=== PATIENT | male | born 1965 | race Caucasian/White ===

== ENCOUNTER 2019-04-01 23:19 | Inpatient (IN) | payer BC, OTHER ==
[~2019-04-01] VITALS: Ht 167.6 cm; Wt 120.7 kg
[~2019-04-01 23:19] MED LIST: ASPI-535 PO; OMEP40CA3 PO
[2019-04-01] MEDS ORDERED: SODIUM CHLORIDE 0.9% 1L BAG IV* STA (23:37)
[2019-04-01] MEDS ORDERED: VANCOMYCIN 1 GM (PMX) 250 ML IVPB STA (23:37)
[2019-04-01] MEDS ORDERED: PIPER-TAZO 3.375 GM IV (PMX) 100 ML IVPB STA (23:37)
--- NOTE | 2019-04-01 23:38 | ERD ---
ER Documentation Chief Complaint Chief Complaint R LEG PAIN, REDNESS, HOT TO TOUCH X'S 1 DAY HPI This is a 53-year-old male with a history of a chronic right lower extremity wound who presents with fever, as well as redness, and pain to his right lower extremity. Patient has had this wound for many years, however today family note d there is red and painful. He has no cough, no chest pain, no urinary symptoms or abdominal pain. He was previously receiving wound care for this, he has no known history of diabetes. ROS All systems reviewed and are negative except as per history of present illness. Medications Home Meds Active Scripts Aspirin Ec (Aspir 81) 81 Mg Tablet., 81 MG PO DAILY, #30 TAB Prov:JOSE J PANIAGUA MD 06/07/16 Omeprazole* (Prilosec*) 40 Mg Capsule., 40 MG PO DAILY, #30 CAP Prov:JOSE J PANIAGUA MD 06/07/16 Allergies Allergies: Coded Allergies: No Known Allergy (Unverified , 04/01/19) PMhx/Soc History of Surgery: No Anesthesia Reaction: No Hx Neurological Disorder: No Hx Respiratory Disorders: No Hx Cardiac Disorders: No Hx Psychiatric Problems: No Hx Miscellaneous Medical Probl: No (PT DENIES AND STATES HE TAKES NO AT HOME MEDS) Hx Alcohol Use: Yes (OOC) Hx Substance Use: No Hx Tobacco Use: Yes Physical Exam Vitals Vital Signs Date Temp Pulse Resp B/P (MAP) Pulse Ox O2 O2 Flow FiO2 Time Delivery Rate 04/02/19 100.4 95 18 137/75 95 Room Air 00:16 (95) 04/01/19 101.4 103 20 157/72 95 23:24 (100) Physical Exam Const: Well-appearing, nontoxic well-developed well-nourished Head: Atraumatic Eyes: Normal Conjunctiva ENT: Normal External Ears, Nose and Mouth. Neck: Full range of motion. No meningismus. Resp: Clear to auscultation bilaterally Cardio: Regular rate and rhythm, no murmurs Abd: Soft, non tender, non distended. Normal bowel sounds Skin: No petechiae or rashes Back: No midline or flank tenderness Ext: No cyanosis, or edema. There is redness, warmth and tenderness over the right lower extremity at the anterior lemos, there is no purulent drainage, no crepitus, no fluctuant masses, pulses are intact distally, sensation intact light touch. Neur: Awake and alert Psych: Normal Mood and Affect Result Diagram: 04/01/19 2345 04/01/19 2345 Results 24 hrs Laboratory Tests Test 04/01/19 23:45 04/01/19 23:47 White Blood Count 18.1 10^3/ul Red Blood Count 4.93 10^6/ul Hemoglobin 15.4 g/dl Hematocrit 47.0 % Mean Corpuscular Volume 95.3 fl Mean Corpuscular Hemoglobin 31.2 pg Mean Corpuscular Hemoglobin Concent 32.8 g/dl Red Cell Distribution Width 12.5 % Platelet Count 205 10^3/UL Mean Platelet Volume 9.1 fl Immature Granulocytes % 0.700 % Neutrophils % 84.4 % Lymphocytes % 7.3 % Monocytes % 6.5 % Eosinophils % 0.8 % Basophils % 0.3 % Nucleated Red Blood Cells % 0.0 /100WBC Immature Granulocytes # 0.130 10^3/ul Neutrophils # 15.3 10^3/ul Lymphocytes # 1.3 10^3/ul Monocytes # 1.2 10^3/ul Eosinophils # 0.1 10^3/ul Basophils # 0.1 10^3/ul Nucleated Red Blood Cells # 0.0 10^3/ul Prothrombin Time 12.0 Sec Prothrombin Time Ratio 0.9 INR International Normalized Ratio 0.88 Activated Partial Thromboplast Time 26.6 Sec Sodium Level 141 mmol/L Potassium Level 4.2 mmol/L Chloride Level 106 mmol/L Carbon Dioxide Level 28 mmol/L Anion Gap 7 Blood Urea Nitrogen 17 mg/dl Creatinine 0.92 mg/dl Est Glomerular Filtrat Rate mL/min > 60 mL/min Glucose Level 111 mg/dl Lactic Acid Level 1.3 mmol/L Calcium Level 9.2 mg/dl Total Bilirubin 0.3 mg/dl Direct Bilirubin 0.00 mg/dl Indirect Bilirubin 0.3 mg/dl Aspartate Amino Transf (AST/SGOT) 25 IU/L Alanine Aminotransferase (ALT/SGPT) 30 IU/L Alkaline Phosphatase 47 IU/L Troponin I Pending Total Protein 7.8 g/dl Albumin 4.4 g/dl Globulin 3.40 g/dl Albumin/Globulin Ratio 1.29 POC Venous Lactate 1.1 mmol/L Current Medications Medications Dose Sig/Tika Start Time Status Last (Trade) Ordered Route PRN Stop Time Admin Dose Reason Admin Sodium 3,590 ml BOLUS OVER 2 04/01/19 DC 04/02/19 Chloride HOURS STAT 23:37 00:06 (NS) IV* 04/01/19 23:39 Vancomycin 250 ml @ ONCE STAT 04/01/19 04/02/19 HCl 125 mls/hr IVPB 23:37 00:44 04/02/19 01:36 Piperacillin 100 ml @ ONCE STAT 04/01/19 DC 04/02/19 Sod/ 200 mls/hr IVPB 23:37 00:06 Tazobactam 04/02/19 00:06 Sod Procedures/MDM 53-year-old male presents with redness and fever in the setting of a history of chronic right lower extremity wound. Patient met septic criteria, and code sepsis was called, he was treated with vancomycin and Zosyn, he has no cardiac history, he is given 30 cc/kg of fluids, his lactate was within normal limits, he had no evidence of severe sepsis or septic shock. Sepsis Documentation: Patient's infectious symptoms have not stabilized and the patient is at risk of rapid decompensation. The patient will be admitted for careful hydration, antibiotic therapy, and infectious source control. Accepting Care Team: Current data and ongoing care discussed. Time: Time of admission Primary Provider: Michelle Consulting: pending Outstanding Data: none SEVERE SEPSIS CRITERIA: Infectious source: Cellulitis EKG: Rate/Rhythm: Normal Sinus Rhythm QRS, ST, T-waves: No changes consistent w/ acute ischemia Impression: No evidence of ischemia or arrhythmia 3 HOUR BUNDLE Blood cultures x 2 before broad-spectrum antibiotics: [Yes] 30 ml/kg NS bolus [Completed] Initial lactate 1 Repeat lactate not indicated SEPTIC SHOCK ASSESSMENT: CRITICAL CARE Critical care time [35] minutes Emergent fluid management while maintaining close respiratory support. Provision of immediate and broad-spectrum antibiotic therapy. Simultaneous assessment for possible sources in order to direct targeted therapy. Consideration for invasive and chemical support to prevent cardiopulmonary collapse. Critical care time is independent of procedures performed. Departure Diagnosis: Primary Impression: Sepsis Sepsis type: sepsis due to unspecified organism Qualified Codes: A41.9 - Sepsis, unspecified organism Additional Impression: Cellulitis Site of cellulitis: unspecified site Qualified Codes: L03.90 - Cellulitis, unspecified Condition: Stable HODAN STEEN MD April 01, 2019 23:38
[2019-04-02 01:50] VITALS: BP 145/68; PULSE 97; RESP 18
[2019-04-02 02:20] VITALS: Ht 167.6 cm; Wt 120.7 kg
--- NOTE | 2019-04-02 05:43 | HP ---
Date/Time of Note Date/Time of Note DATE: 04/02/19 TIME: 05:40 Assessment/Plan VTE Prophylaxis Risk score (from Ns)>0 risk: 4 SCD applied (from Ns): Yes Pharmacological prophylaxis: heparin Lines/Catheters IV Catheter Type (from Nrs): Saline Lock Assessment/Plan Assessment/Plan 53-year-old male with a history of right lower extremity infection being admitted for sepsis secondary to right lower extremity cellulitis PLAN -IV antibiotic -IV fluid -Follow-up culture results -Pain management -DVT prophylaxis -Continue home aspirin and PPI Result Diagram: 04/01/19 2345 04/01/19 2345 Results 24hrs Laboratory Tests Test 04/01/19 23:45 04/01/19 23:47 04/02/19 01:32 White Blood Count 18.1 #H Red Blood Count 4.93 Hemoglobin 15.4 Hematocrit 47.0 Mean Corpuscular Volume 95.3 Mean Corpuscular Hemoglobin 31.2 Mean Corpuscular Hemoglobin Concent 32.8 Red Cell Distribution Width 12.5 Platelet Count 205 Mean Platelet Volume 9.1 # Immature Granulocytes % 0.700 H Neutrophils % 84.4 H Lymphocytes % 7.3 L Monocytes % 6.5 Eosinophils % 0.8 Basophils % 0.3 Nucleated Red Blood Cells % 0.0 Immature Granulocytes # 0.130 H Neutrophils # 15.3 H Lymphocytes # 1.3 Monocytes # 1.2 H Eosinophils # 0.1 Basophils # 0.1 Nucleated Red Blood Cells # 0.0 Prothrombin Time 12.0 Prothrombin Time Ratio 0.9 INR International Normalized Ratio 0.88 Activated Partial Thromboplast Time 26.6 Sodium Level 141 Potassium Level 4.2 Chloride Level 106 Carbon Dioxide Level 28 Anion Gap 7 Blood Urea Nitrogen 17 Creatinine 0.92 Est Glomerular Filtrat Rate mL/min > 60 Glucose Level 111 Lactic Acid Level 1.3 Calcium Level 9.2 Total Bilirubin 0.3 Direct Bilirubin 0.00 Indirect Bilirubin 0.3 Aspartate Amino Transf (AST/SGOT) 25 Alanine Aminotransferase (ALT/SGPT) 30 Alkaline Phosphatase 47 Troponin I < 0.012 Total Protein 7.8 Albumin 4.4 Globulin 3.40 H Albumin/Globulin Ratio 1.29 POC Venous Lactate 1.1 Urine Color YELLOW Urine Clarity CLEAR Urine pH 7.0 Urine Specific Mathews 1.013 Urine Ketones NEGATIVE Urine Nitrite NEGATIVE Urine Bilirubin NEGATIVE Urine Urobilinogen NEGATIVE Urine Leukocyte Esterase NEGATIVE Urine Hemoglobin NEGATIVE Urine Glucose NEGATIVE Urine Total Protein NEGATIVE HPI/ROS Admit Date/Time Admit Date/Time April 02, 2019 at 00:49 Hx of Present Illness This is a 53-year-old male with history of right lower extremity infection who presented to ER complaining of fever, right lower extremity erythema and tenderness. When he presented to the ER, he was febrile with a temperature of 101.4 and tachycardic. Labs shows white count of 18,000. PMH/Family/Social Past Medical History Past Surgical Hx: other (see hpi) Family History Significant Family History: no pertinent family hx Social History Alcohol Use: none Smoking Status: Never smoker Drug Use: none Exam Exam Constitutional: other (No acute distress) Head: normocephalic, atraumatic Eyes: EOMI, PERRL Respiratory: other (no wheezing or Rhonchi) Cardiovascular: normal pulse Gastrointestinal: soft, non-tender Extremities: normal pulses Coded Allergies: No Known Allergy (Unverified , 04/01/19) Social History Smoking Status: Current some day smoker Exam/Review of Systems Vital Signs Vitals Vital Signs Date Temp Pulse Resp B/P (MAP) Pulse Ox O2 O2 Flow FiO2 Time Delivery Rate 04/02/19 99.2 97 18 145/68 95 01:50 (93) 04/02/19 Room Air 01:28 Intake and Output 04/01/19 04/01/19 04/02/19 1515:00 23:00 07:00 IntakeIntake Total 2250 ml BalanceBalance 2250 ml CARMELO NOEL MD April 02, 2019 05:43
[2019-04-02] MEDS ORDERED: HYDROCODONE/APAP (5/325) TAB PO PRN ×2 (06:00)
[2019-04-02] MEDS ORDERED: ACETAMINOPHEN 325 MG TAB PO PRN (06:00)
[2019-04-02] MEDS ORDERED: NACL 0.9% 3 ML SYG IV SCH (06:00)
[2019-04-02] MEDS ORDERED: VANCOMYCIN IV PER PHARMACY XX SCH (06:00)
[2019-04-02] MEDS ORDERED: ONDANSETRON 4 MG INJ IV PRN (06:00)
[2019-04-02] MEDS: PANTOPRAZOLE (EC) 40 MG TAB PO SCH (06:30)
[2019-04-02] MEDS: SOD CHLORIDE 0.9% 1,000 ML IV SCH ×3 (06:50→17:17)
[2019-04-02] MEDS ORDERED: VANCOMYCIN 1 GM 250 ML IVPB ONE (07:00)
[2019-04-02 07:53] VITALS: BP 122/64; PULSE 89; RESP 17
[2019-04-02] MEDS: CEFEPIME 1GM/50 ML (PMX) 50 ML IVPB SCH ×2 (08:49→21:07)
[2019-04-02] MEDS: ASPIRIN (EC) 81 MG TAB PO SCH (08:55)
[2019-04-02] MEDS: ENOXAPARIN 40 MG/0.4 ML SYG SC SCH (08:55)
[2019-04-02] MEDS ORDERED: NON-FORMULARY/PATIENT OWN MED (Omeprazole* (Prilosec*) 40 MG) PO SCH (09:00)
--- NOTE | 2019-04-02 10:09 | CONS ---
DATE OF ADMISSION: 04/02/2019 DATE OF CONSULTATION: 04/02/2019 TYPE OF CONSULTATION: Infectious disease. REASON FOR CONSULTATION: Antibiotic management. HISTORY OF PRESENT ILLNESS: Owen Wesley is a 53-year-old [place] male who comes in w ith right leg pain, redness of 1 day's duration. The patient has a history of chronic right lower ex tremity wound. He presents with fever, erythema and pain to the right lower extremity. He has no co ugh, no chest pain or urinary tract infection. He was previously receiving wound care for his right lower extremity wound. There is no history of diabetes. PAST SURGICAL HISTORY: None. FAMILY HISTORY: Noncontributory. SOCIAL HISTORY: He drinks socially. He smokes tobacco. He does not abuse drugs. ALLERGIES: None to penicillin, sulfa or foods. MEDICATIONS: Per chart. REVIEW OF SYSTEMS: As per HPI. PHYSICAL EXAMINATION: GENERAL: He is a well-developed, well-nourished male. VITAL SIGNS: T-max 101.4. SKIN: Without generalized rash. HEENT: Within normal limits. NECK: Supple. LYMPH NODES: None palpable. CHEST: Decreased breath sounds at the bases. HEART: Without murmur or gallop. ABDOMEN: Soft, nontender, without organosplenomegaly or masses. EXTREMITIES: He has warmth, redness, tenderness over the right lower extremity in the anterior tibia l area without drainage and without fluctuance. RECTAL AND GENITAL: Deferred. NEUROLOGIC: No focal neurological abnormalities. LABORATORY DATA: White count of 18.1 with 84% neutrophils, H and H of 15.4 and 47, platelet count 20 5,000. BUN and creatinine 17/0.92. IMPRESSION AND PLAN: The patient was started on vancomycin and Zosyn for cellulitis of the right low er extremity. He had no evidence of severe sepsis or septic shock. We will continue him on this reg imen. I will dictate my findings to the hospitalists. Dictated By: EV MALIK MD, JD/KATHY Conf#: [id number] DID#: [id number] CC: CARMELO NOEL MD;*EndCC*
--- NOTE | 2019-04-02 12:03 | PN ---
Date/Time of Note Date/Time of Note DATE: 04/02/19 TIME: 12:03 Objective Vitals Vital Signs Date Temp Pulse Resp B/P (MAP) Pulse Ox O2 O2 Flow FiO2 Time Delivery Rate 04/02/19 98.4 89 17 122/64 94 Room Air 07:53 (83) Intake and Output 04/01/19 04/01/19 04/02/19 1515:00 23:00 07:00 IntakeIntake Total 2250 ml BalanceBalance 2250 ml Results Result Diagram: 04/02/199 04/02/199 Medications Medications Current Medications Sodium Chloride 1,000 ml @ 100 mls/hr Q10H IV Last administered on 04/02/19at 06:50; Admin Dose 100 MLS/HR; Start 04/02/19 at 05:36 IV Flush (NS 3 ml) 3 ml PER PROTOCOL IV ; Start 04/02/19 at 06:00 Ondansetron HCl (Zofran Inj) 4 mg Q6H PRN IV NAUSEA/VOMITING; Start 04/02/19 at 06:00 Acetaminophen (Tylenol Tab) 650 mg Q6H PRN PO .PAIN 1-3 OR TEMP Last administered on 04/02/19at 06:55; Admin Dose 650 MG; Start 04/02/19 at 06:00 Acetaminophen/ Hydrocodone Bitart ([place] (5/325)) 1 tab Q6H PRN PO .MOD PAIN 4- 6; Start 04/02/19 at 06:00 Acetaminophen/ Hydrocodone Bitart ([place] (5/325)) 2 tab Q6H PRN PO .SEVERE PAIN 7-10; Start 04/02/19 at 06:00 Enoxaparin Sodium (Lovenox) 40 mg DAILY SC Last administered on 04/02/19at 08:55; Admin Dose 40 MG; Start 04/02/19 at 09:00 Aspirin (Halfprin) 81 mg DAILY PO Last administered on 04/02/19at 08:55; Admin Dose 81 MG; Start 04/02/19 at 09:00 Cefepime HCl 50 ml @ 100 mls/hr Q12 IVPB Last administered on 04/02/19at 08:49; Admin Dose 100 MLS/HR; Start 04/02/19 at 09:00 Vancomycin HCl (Vanco Iv Per Pharmacy) VANCOMYCIN PER PHARMACY PER PROTOCOL XX ; Start 04/02/19 at 06:00 Pantoprazole (Protonix Tab) 40 mg DAILY@06 PO ; Start 04/02/19 at 06:30 VTE Prophylaxis Risk score (from Ns)>0 risk: 4 SCD applied (from [facility] [place]): No SCD contraindication: other Lines/Catheters IV Catheter Type: Brooke in Place: No Assessment/Plan Hospital Course This is a short progress note as H&P was done earlier today, patient does have right lower extremity cellulitis, continue IV antibiotics, IV fluid, infectious disease has been consulted. HODAN PRICE April 02, 2019 12:03
[2019-04-02 20:00] VITALS: BP 126/71; PULSE 72; RESP 18
[2019-04-02] MEDS: VANCOMYCIN HCL 1.25 GM in SOD CHLORIDE 0.9% 250 ML IVPB SCH (21:45)
[2019-04-03 02:00] VITALS: BP 126/69; PULSE 86; RESP 18
[2019-04-03] MEDS: PANTOPRAZOLE (EC) 40 MG TAB PO SCH (05:45)
[2019-04-03 08:10] VITALS: BP 124/76; PULSE 77; RESP 17
[2019-04-03] MEDS: CEFEPIME 1GM/50 ML (PMX) 50 ML IVPB SCH (08:30)
[2019-04-03] MEDS: VANCOMYCIN HCL 1.25 GM in SOD CHLORIDE 0.9% 250 ML IVPB SCH ×2 (08:30→20:17)
[2019-04-03] MEDS: ASPIRIN (EC) 81 MG TAB PO SCH (08:30)
[2019-04-03] MEDS: ENOXAPARIN 40 MG/0.4 ML SYG SC SCH (08:32)
[2019-04-03] MEDS: SOD CHLORIDE 0.9% 1,000 ML IV SCH (08:33)
[2019-04-03] MEDS: PIPER-TAZO 3.375 GM IV (PMX) 100 ML IVPB SCH ×2 (14:22→23:33)
[2019-04-03 14:44] VITALS: BP 114/60; PULSE 73; RESP 17
--- NOTE | 2019-04-03 17:37 | PN ---
Date/Time of Note Date/Time of Note DATE: 04/03/19 TIME: 17:31 Assessment/Plan VTE Prophylaxis Risk score (from Nsg)>0 risk: 4 SCD applied (from Nsg): Yes Pharmacological prophylaxis: LMWH Lines/Catheters IV Catheter Type (from Nrsg): Saline Lock Urinary Cath still in place: No Assessment/Plan Assessment/Plan 1. Acute right lower extremity cellulitis vs folliculitis - ID on board and appreciate recommendations. Continue on current antibiotic - advised patient to keep limb elevated to prevent swelling - WBC trending down 2. Disposition - Monitor for improvement in LE cellulitis and will transition to PO once improving and d/c home Result Diagram: 04/03/1938 04/03/19 0538 Results 24hrs Laboratory Tests Test 04/03/19 05:38 White Blood Count 10.9 #H Red Blood Count 4.46 L Hemoglobin 14.1 Hematocrit 42.2 Mean Corpuscular Volume 94.6 Mean Corpuscular Hemoglobin 31.6 Mean Corpuscular Hemoglobin Concent 33.4 Red Cell Distribution Width 13.0 Platelet Count 163 Mean Platelet Volume 9.2 Immature Granulocytes % 0.600 H Neutrophils % 70.6 Lymphocytes % 17.1 Monocytes % 9.4 Eosinophils % 1.8 Basophils % 0.5 Nucleated Red Blood Cells % 0.0 Immature Granulocytes # 0.060 H Neutrophils # 7.7 H Lymphocytes # 1.9 Monocytes # 1.0 H Eosinophils # 0.2 Basophils # 0.1 Nucleated Red Blood Cells # 0.0 Sodium Level 141 Potassium Level 4.2 Chloride Level 109 Carbon Dioxide Level 26 Anion Gap 6 Blood Urea Nitrogen 11 Creatinine 0.90 Est Glomerular Filtrat Rate mL/min > 60 Glucose Level 111 Calcium Level 8.6 Phosphorus Level 4.0 Magnesium Level 2.0 Subjective 24 Hr Interval Summary Free Text/Dictation Patient states erythema and swelling of RLE is worsening but denies any fevers. Exam/Review of Systems Exam Vitals Vital Signs Date Temp Pulse Resp B/P (MAP) Pulse Ox O2 O2 Flow FiO2 Time Delivery Rate 04/03/19 98.8 73 17 114/60 95 Room Air 14:44 (78) Intake and Output 04/02/19 04/02/19 04/03/19 1515:00 23:00 07:00 IntakeIntake Total 50 ml 90 ml BalanceBalance 50 ml 90 ml Exam General: Patient is laying in bed and answers questions appropriately. no acute distress Mentation: Patient is alert and oriented 4, Neck: Supple, nontender, midline Respiratory: Clear to auscultation bilaterally. no wheezing Cardiovascular: regular rate and rhythm, no obvious murmurs Gastrointestinal: soft, nontender to palpation, nondistended. no rebound or guarding Ext: Moves all extremities spontaneously Skin: erythema and warm right anterior tibial area, no open wounds or discharge appreciated. mild tenderness to palpation Results Results 24hrs Laboratory Tests Test 04/03/19 05:38 White Blood Count 10.9 #H Red Blood Count 4.46 L Hemoglobin 14.1 Hematocrit 42.2 Mean Corpuscular Volume 94.6 Mean Corpuscular Hemoglobin 31.6 Mean Corpuscular Hemoglobin Concent 33.4 Red Cell Distribution Width 13.0 Platelet Count 163 Mean Platelet Volume 9.2 Immature Granulocytes % 0.600 H Neutrophils % 70.6 Lymphocytes % 17.1 Monocytes % 9.4 Eosinophils % 1.8 Basophils % 0.5 Nucleated Red Blood Cells % 0.0 Immature Granulocytes # 0.060 H Neutrophils # 7.7 H Lymphocytes # 1.9 Monocytes # 1.0 H Eosinophils # 0.2 Basophils # 0.1 Nucleated Red Blood Cells # 0.0 Sodium Level 141 Potassium Level 4.2 Chloride Level 109 Carbon Dioxide Level 26 Anion Gap 6 Blood Urea Nitrogen 11 Creatinine 0.90 Est Glomerular Filtrat Rate mL/min > 60 Glucose Level 111 Calcium Level 8.6 Phosphorus Level 4.0 Magnesium Level 2.0 Medications Medication Current Medications Sodium Chloride 1,000 ml @ 100 mls/hr Q10H IV Last administered on 04/03/19at 08:33; Admin Dose 100 MLS/HR; Start 04/02/19 at 05:36 IV Flush (NS 3 ml) 3 ml PER PROTOCOL IV ; Start 04/02/19 at 06:00 Ondansetron HCl (Zofran Inj) 4 mg Q6H PRN IV NAUSEA/VOMITING; Start 04/02/19 at 06:00 Acetaminophen (Tylenol Tab) 650 mg Q6H PRN PO .PAIN 1-3 OR TEMP Last administered on 04/02/19at 06:55; Admin Dose 650 MG; Start 04/02/19 at 06:00 Acetaminophen/ Hydrocodone Bitart ([place] (5/325)) 1 tab Q6H PRN PO .MOD PAIN 4- 6; Start 04/02/19 at 06:00 Acetaminophen/ Hydrocodone Bitart ([place] (5/325)) 2 tab Q6H PRN PO .SEVERE PAIN 7-10 Last administered on 04/03/19 12:33; Admin Dose 2 TAB; Start 04/02/19 at 06:00 Enoxaparin Sodium (Lovenox) 40 mg DAILY SC Last administered on 04/03/19 08:32; Admin Dose 40 MG; Start 04/02/19 at 09:00 Aspirin (Halfprin) 81 mg DAILY PO Last administered on 04/03/19 08:30; Admin Dose 81 MG; Start 04/02/19 at 09:00 Vancomycin HCl (Vanco Iv Per Pharmacy) VANCOMYCIN PER PHARMACY PER PROTOCOL XX ; Start 04/02/19 at 06:00 Pantoprazole (Protonix Tab) 40 mg DAILY@06 PO Last administered on 04/03/19at 05:45; Admin Dose 40 MG; Start 04/02/19 at 06:30 Vancomycin HCl 1.25 gm/Sodium Chloride 250 ml @ 83.333 mls/ hr Q12H IVPB Last administered on 04/03/19 08:30; Admin Dose 83.333 MLS/HR; Start 04/02/19 at 20:00 Miscellaneous Information (*Rx Drug Level Order Reminder*) VANCO TR LEVEL PRIOR... ONCE ONCE XX ; Start 04/03/19 at 19:00; Stop 04/03/19 at 19:01 Piperacillin Sod/ Tazobactam Sod 100 ml @ 200 mls/hr Q8 IVPB Last administered on 04/03/19 14:22; Admin Dose 200 MLS/HR; Start 04/03/19 at 14:00 KHOI ESPARZA MD April 03, 2019 17:37
[2019-04-03] MEDS ORDERED: FUROSEMIDE 40 MG INJ IV ONE (19:00)
[2019-04-03 20:47] VITALS: BP 128/67; PULSE 62; RESP 18
[2019-04-04 02:00] VITALS: BP 127/72; PULSE 67; RESP 19
[2019-04-04] MEDS: VANCOMYCIN 1 GM 250 ML IVPB SCH ×3 (03:48→21:12)
[2019-04-04] MEDS: PANTOPRAZOLE (EC) 40 MG TAB PO SCH (05:35)
[2019-04-04] MEDS: PIPER-TAZO 3.375 GM IV (PMX) 100 ML IVPB SCH ×2 (06:04→14:19)
[2019-04-04 07:35] VITALS: BP 116/56; PULSE 66; RESP 19
[2019-04-04] MEDS: ENOXAPARIN 40 MG/0.4 ML SYG SC SCH (09:07)
[2019-04-04] MEDS: ASPIRIN (EC) 81 MG TAB PO SCH (09:08)
--- NOTE | 2019-04-04 10:05 | PN ---
Date/Time of Note Date/Time of Note DATE: 04/04/19 TIME: 10:00 Assessment/Plan VTE Prophylaxis Risk score (from Ns)>0 risk: 4 SCD applied (from Nsg): Yes Pharmacological prophylaxis: LMWH Lines/Catheters IV Catheter Type (from Nrsg): Peripheral IV Urinary Cath still in place: No Assessment/Plan Assessment/Plan 1. Acute right lower extremity cellulitis vs folliculitis - US negative for DVT and no open areas appreciated. All cultures negative - remains afebrile - ID on board and appreciate recommendations. - advised patient to keep limb elevated to prevent swelling 2. Disposition - Continue monitoring for improvement in erythema and swelling. Will d/c home on PO antibiotics once resolving Result Diagram: 04/03/19 0538 04/03/19 0538 Results 24hrs Laboratory Tests Test 04/03/19 18:51 Vancomycin Level Trough 6.9 L Subjective 24 Hr Interval Summary Free Text/Dictation Patient still concerned about lower extremity redness and swelling. Only has p ain when ambulating but relieves after a few minutes. No numbness or tingling noted. Exam/Review of Systems Exam Vitals Vital Signs Date Temp Pulse Resp B/P (MAP) Pulse Ox O2 O2 Flow FiO2 Time Delivery Rate 04/04/19 99.2 66 19 116/56 95 Room Air 07:35 (76) Intake and Output 04/03/19 04/03/19 04/04/19 1515:00 23:00 07:00 IntakeIntake Total 1020 ml 700 ml 1000 ml OutputOutput Total 500 ml BalanceBalance 1020 ml 200 ml 1000 ml Exam General: Patient is laying in bed and answers questions appropriately. no acute distress Respiratory: Clear to auscultation bilaterally. no wheezing Cardiovascular: regular rate and rhythm, no obvious murmurs Gastrointestinal: soft, nontender to palpation, nondistended. no rebound or guarding Ext: Moves all extremities spontaneously Skin: erythema and warm right anterior tibial area, no open wounds or discharge appreciated. non tender Results Results 24hrs Laboratory Tests Test 04/03/19 18:51 Vancomycin Level Trough 6.9 L Medications Medication Current Medications IV Flush (NS 3 ml) 3 ml PER PROTOCOL IV ; Start 04/02/19 at 06:00 Ondansetron HCl (Zofran Inj) 4 mg Q6H PRN IV NAUSEA/VOMITING; Start 04/02/19 at 06:00 Acetaminophen (Tylenol Tab) 650 mg Q6H PRN PO .PAIN 1-3 OR TEMP Last administered on 04/02/19 06:55; Admin Dose 650 MG; Start 04/02/19 at 06:00 Acetaminophen/ Hydrocodone Bitart ([place] (5/325)) 1 tab Q6H PRN PO .MOD PAIN 4- 6; Start 04/02/19 at 06:00 Acetaminophen/ Hydrocodone Bitart ([place] (5/325)) 2 tab Q6H PRN PO .SEVERE PAIN 7-10 Last administered on 04/03/19 12:33; Admin Dose 2 TAB; Start 04/02/19 at 06:00 Enoxaparin Sodium (Lovenox) 40 mg DAILY SC Last administered on 04/04/19 09:07; Admin Dose 40 MG; Start 04/02/19 at 09:00 Aspirin (Halfprin) 81 mg DAILY PO Last administered on 04/04/19 09:08; Admin Dose 81 MG; Start 04/02/19 at 09:00 Vancomycin HCl (Vanco Iv Per Pharmacy) VANCOMYCIN PER PHARMACY PER PROTOCOL XX ; Start 04/02/19 at 06:00 Pantoprazole (Protonix Tab) 40 mg DAILY@06 PO Last administered on 04/04/19 05:35; Admin Dose 40 MG; Start 04/02/19 at 06:30 Piperacillin Sod/ Tazobactam Sod 100 ml @ 200 mls/hr Q8 IVPB Last administered on 04/04/19 06:04; Admin Dose 200 MLS/HR; Start 04/03/19 at 14:00 Vancomycin HCl 250 ml @ 125 mls/hr Q8H IVPB Last administered on 04/04/19 03:48; Admin Dose 125 MLS/HR; Start 04/04/19 at 04:00 KHOI ESPARZA MD April 04, 2019 10:05
--- NOTE | 2019-04-04 15:08 | CONS ---
Assessment/Plan Assessment/Plan Hospital Course (Demo Recall) Patient is alert looks comfortable no fevers overnight WBC yesterday was 10.9, no labs today Microbiology: All cultures negative Antimicrobials: Vancomycin, Zosyn Physical examination: Well-developed middle-aged [place] man who is alert in no distress. Head atraumatic normocephalic. Neck is supple chest rise symmetrical breath sounds clear. Heart: S1-S2. Abdomen soft bowel sounds present. Extremities: Right lower extremity edema and significant erythema Assessment: 1. Systemic inflammatory response syndrome with resolving leukocytosis 2. Right lower extremity cellulitis Patient remains stable, we will change Zosyn to Rocephin, continue IV vancomycin/pharmacy to adjust for subtherapeutic level, encourage right lower extremity elevation Consultation Date/Type/Reason Admit Date/Time April 02, 2019 at 00:49 Initial Consult Date Type of Consult id Date/Time of Note DATE: 04/04/19 TIME: 15:07 Exam/Review of Systems Exam Vitals Vital Signs Date Temp Pulse Resp B/P (MAP) Pulse Ox O2 O2 Flow FiO2 Time Delivery Rate 04/04/19 99.2 66 19 116/56 95 Room Air 07:35 (76) Intake and Output 04/03/19 04/03/19 04/04/19 1515:00 23:00 07:00 IntakeIntake Total 1020 ml 700 ml 1000 ml OutputOutput Total 500 ml BalanceBalance 1020 ml 200 ml 1000 ml Results Result Diagram: 04/03/19 0538 04/03/19 0538 Results 24hrs Laboratory Tests Test 04/03/19 18:51 Vancomycin Level Trough 6.9 L Medications Medication Current Medications IV Flush (NS 3 ml) 3 ml PER PROTOCOL IV ; Start 04/02/19 at 06:00 Ondansetron HCl (Zofran Inj) 4 mg Q6H PRN IV NAUSEA/VOMITING; Start 04/02/19 at 06:00 Acetaminophen (Tylenol Tab) 650 mg Q6H PRN PO .PAIN 1-3 OR TEMP Last administered on 04/02/19at 06:55; Admin Dose 650 MG; Start 04/02/19 at 06:00 Acetaminophen/ Hydrocodone Bitart ([place] (5/325)) 1 tab Q6H PRN PO .MOD PAIN 4- 6; Start 04/02/19 at 06:00 Acetaminophen/ Hydrocodone Bitart ([place] (5/325)) 2 tab Q6H PRN PO .SEVERE PAIN 7-10 Last administered on 04/03/19at 12:33; Admin Dose 2 TAB; Start 04/02/19 at 06:00 Enoxaparin Sodium (Lovenox) 40 mg DAILY SC Last administered on 04/04/19at 09:07; Admin Dose 40 MG; Start 04/02/19 at 09:00 Aspirin (Halfprin) 81 mg DAILY PO Last administered on 04/04/19at 09:08; Admin Dose 81 MG; Start 04/02/19 at 09:00 Vancomycin HCl (Vanco Iv Per Pharmacy) VANCOMYCIN PER PHARMACY PER PROTOCOL XX ; Start 04/02/19 at 06:00 Pantoprazole (Protonix Tab) 40 mg DAILY@06 PO Last administered on 04/04/19at 05:35; Admin Dose 40 MG; Start 04/02/19 at 06:30 Piperacillin Sod/ Tazobactam Sod 100 ml @ 200 mls/hr Q8 IVPB Last administered on 04/04/19at 14:19; Admin Dose 200 MLS/HR; Start 04/03/19 at 14:00 Vancomycin HCl 250 ml @ 125 mls/hr Q8H IVPB Last administered on 04/04/19at 11:32; Admin Dose 125 MLS/HR; Start 04/04/19 at 04:00 Miscellaneous Information (*Rx Drug Level Order Reminder*) 1 1100 ONCE XX ; Start 04/05/19 at 11:00; Stop 04/05/19 at 11:01 WHIT BALLESTEROS NP April 04, 2019 15:08
[2019-04-04] MEDS: CEFTRIAXONE 1 GM/50 ML (PMX) 50 ML IVPB SCH (15:54)
[2019-04-04 20:11] VITALS: BP 134/78; PULSE 67; RESP 18
[2019-04-05 02:00] VITALS: BP 132/61; PULSE 62; RESP 18
[2019-04-05] MEDS: VANCOMYCIN 1 GM 250 ML IVPB SCH ×3 (03:55→20:28)
[2019-04-05] MEDS: PANTOPRAZOLE (EC) 40 MG TAB PO SCH (06:02)
[2019-04-05 09:32] VITALS: BP 124/63; PULSE 63; RESP 18
[2019-04-05] MEDS: ENOXAPARIN 40 MG/0.4 ML SYG SC SCH (09:54)
[2019-04-05] MEDS: ASPIRIN (EC) 81 MG TAB PO SCH (09:57)
--- NOTE | 2019-04-05 14:19 | CONS ---
Assessment/Plan Assessment/Plan Hospital Course (Demo Recall) Patient is alert looks comfortable sitting in a chair with legs down states that his pain is better when he keeps the leg down. The leg looks better today with erythema is more pale swelling persists WBC 6.7 no shift no bands BUN 11 creatinine 0.90 Wound culture over the right lower extremity growing staph species Antimicrobials: Vancomycin and Rocephin Physical examination: Well-developed middle-aged [place] man who is alert in no distress. Head atraumatic normocephalic. Neck is supple chest rise symmetrical breath sounds clear. Heart: S1-S2. Abdomen soft bowel sounds present. Extremities: Right lower extremity edema and improved erythema Assessment: 1. Systemic inflammatory response syndrome with resolving leukocytosis 2. Right lower extremity cellulitis Patient remains stable, continue antibiotics, encourage right lower extremity elevation, arterial duplex to rule out peripheral arterial disease Consultation Date/Type/Reason Admit Date/Time April 02, 2019 at 00:49 Initial Consult Date Type of Consult id Date/Time of Note DATE: 04/05/19 TIME: 14:18 Exam/Review of Systems Exam Vitals Vital Signs Date Temp Pulse Resp B/P (MAP) Pulse Ox O2 O2 Flow FiO2 Time Delivery Rate 04/05/19 98.4 63 18 124/63 96 09:32 (83) 04/04/19 Room Air 07:35 Intake and Output 04/04/19 04/04/19 04/05/19 1515:00 23:00 07:00 IntakeIntake Total 1110 ml 450 ml 800 ml BalanceBalance 1110 ml 450 ml 800 ml Results Result Diagram: 04/05/19 0525 04/03/19 0538 Results 24hrs Laboratory Tests Test 04/05/19 05:25 04/05/19 10:36 White Blood Count 6.7 # Red Blood Count 4.53 L Hemoglobin 14.2 Hematocrit 43.2 Mean Corpuscular Volume 95.4 Mean Corpuscular Hemoglobin 31.3 Mean Corpuscular Hemoglobin Concent 32.9 Red Cell Distribution Width 12.4 Platelet Count 204 # Mean Platelet Volume 9.0 Immature Granulocytes % 1.000 H Neutrophils % 48.6 Lymphocytes % 32.3 Monocytes % 12.8 H Eosinophils % 4.3 Basophils % 1.0 Nucleated Red Blood Cells % 0.0 Immature Granulocytes # 0.070 H Neutrophils # 3.3 Lymphocytes # 2.2 Monocytes # 0.9 Eosinophils # 0.3 Basophils # 0.1 Nucleated Red Blood Cells # 0.0 Vancomycin Level Trough 10.3 Medications Medication Current Medications IV Flush (NS 3 ml) 3 ml PER PROTOCOL IV ; Start 04/02/19 at 06:00 Ondansetron HCl (Zofran Inj) 4 mg Q6H PRN IV NAUSEA/VOMITING; Start 04/02/19 at 06:00 Acetaminophen (Tylenol Tab) 650 mg Q6H PRN PO .PAIN 1-3 OR TEMP Last administered on 04/02/19at 06:55; Admin Dose 650 MG; Start 04/02/19 at 06:00 Acetaminophen/ Hydrocodone Bitart ([place] (5/325)) 1 tab Q6H PRN PO .MOD PAIN 4- 6; Start 04/02/19 at 06:00 Acetaminophen/ Hydrocodone Bitart ([place] (5/325)) 2 tab Q6H PRN PO .SEVERE PAIN 7-10 Last administered on 04/03/19at 12:33; Admin Dose 2 TAB; Start 04/02/19 at 06:00 Enoxaparin Sodium (Lovenox) 40 mg DAILY SC Last administered on 04/05/19at 09:54; Admin Dose 40 MG; Start 04/02/19 at 09:00 Aspirin (Halfprin) 81 mg DAILY PO Last administered on 04/05/19at 09:57; Admin Dose 81 MG; Start 04/02/19 at 09:00 Vancomycin HCl (Vanco Iv Per Pharmacy) VANCOMYCIN PER PHARMACY PER PROTOCOL XX ; Start 04/02/19 at 06:00 Pantoprazole (Protonix Tab) 40 mg DAILY@06 PO Last administered on 04/05/19at 06:02; Admin Dose 40 MG; Start 04/02/19 at 06:30 Vancomycin HCl 250 ml @ 125 mls/hr Q8H IVPB Last administered on 04/05/19 12:05; Admin Dose 125 MLS/HR; Start 04/04/19 at 04:00 Ceftriaxone Sodium 50 ml @ 100 mls/hr Q24H IVPB Last administered on 04/04/19at 15:54; Admin Dose 100 MLS/HR; Start 04/04/19 at 15:30 WHIT BALLESTEROS NP April 05, 2019 14:19
[2019-04-05 14:23] VITALS: BP 120/61; PULSE 67; RESP 19
--- NOTE | 2019-04-05 15:48 | PN ---
Date/Time of Note Date/Time of Note DATE: 04/05/19 TIME: 15:44 Assessment/Plan VTE Prophylaxis Risk score (from Ns)>0 risk: 3 SCD applied (from Ns): Yes Pharmacological prophylaxis: LMWH Lines/Catheters IV [facility] [place] Urinary Cath still in place: No Assessment/Plan Assessment/Plan 1. Right lower extremity cellulitis, on rocephin and vancomycin, follow up with arterial US ordered by ID, home with oral antibiotics if neg. Instructed to keep right leg elevated 2. Obesity, weight loss 3. DVT prophylaxis: lovenox Result Diagram: 04/05/19 0525 04/03/19 0538 Results 24hrs Laboratory Tests Test 04/05/19 05:25 04/05/19 10:36 White Blood Count 6.7 # Red Blood Count 4.53 L Hemoglobin 14.2 Hematocrit 43.2 Mean Corpuscular Volume 95.4 Mean Corpuscular Hemoglobin 31.3 Mean Corpuscular Hemoglobin Concent 32.9 Red Cell Distribution Width 12.4 Platelet Count 204 # Mean Platelet Volume 9.0 Immature Granulocytes % 1.000 H Neutrophils % 48.6 Lymphocytes % 32.3 Monocytes % 12.8 H Eosinophils % 4.3 Basophils % 1.0 Nucleated Red Blood Cells % 0.0 Immature Granulocytes # 0.070 H Neutrophils # 3.3 Lymphocytes # 2.2 Monocytes # 0.9 Eosinophils # 0.3 Basophils # 0.1 Nucleated Red Blood Cells # 0.0 Vancomycin Level Trough 10.3 Subjective 24 Hr Interval Summary Free Text/Dictation less swelling on right lower extremity. afebrile Exam/Review of Systems Exam Vitals Vital Signs Date Temp Pulse Resp B/P (MAP) Pulse Ox O2 O2 Flow FiO2 Time Delivery Rate 04/05/19 98.0 67 19 120/61 99 14:23 (80) 04/04/19 Room Air 07:35 Intake and Output 04/04/19 04/04/19 04/05/19 1515:00 23:00 07:00 IntakeIntake Total 1110 ml 450 ml 800 ml BalanceBalance 1110 ml 450 ml 800 ml Constitutional: alert, oriented, well developed, obese Psych: no complaints, nl mood/affect Head: normocephalic, atraumatic Eyes: nl conjunctiva, EOMI, nl lids, PERRL ENMT: nl external ears & nose, nl lips & teeth, nl nasal mucosa & septum Neck: supple, non-tender Respiratory: clear to auscultation, normal air movement; No congested cough, No crackles/rales, No diminished breath sounds, No intercostal retraction, No labored breathing, No respirations, No tactile fremitus, No wheezing, No other Cardiovascular: regular rate and rhythm, nl pulses; No bruits, No diastolic murmur, No edema, No gallop, No irregular rhythm, No jugular venous distention (JVD), No murmurs/extra sounds, No rub, No systolic murmur, No S3, No S4, No other Gastrointestinal: soft, nl liver, spleen, non-tender Musculoskeletal: nl extremities to inspection Extremities: other (right lower extremity redness, swelling, warmth and tender between the knee and the ankle) Neurological: SOURCING ANALYST II-XII intact, nl mental status, nl speech, nl strength Results Results 24hrs Laboratory Tests Test 04/05/19 05:25 04/05/19 10:36 White Blood Count 6.7 # Red Blood Count 4.53 L Hemoglobin 14.2 Hematocrit 43.2 Mean Corpuscular Volume 95.4 Mean Corpuscular Hemoglobin 31.3 Mean Corpuscular Hemoglobin Concent 32.9 Red Cell Distribution Width 12.4 Platelet Count 204 # Mean Platelet Volume 9.0 Immature Granulocytes % 1.000 H Neutrophils % 48.6 Lymphocytes % 32.3 Monocytes % 12.8 H Eosinophils % 4.3 Basophils % 1.0 Nucleated Red Blood Cells % 0.0 Immature Granulocytes # 0.070 H Neutrophils # 3.3 Lymphocytes # 2.2 Monocytes # 0.9 Eosinophils # 0.3 Basophils # 0.1 Nucleated Red Blood Cells # 0.0 Vancomycin Level Trough 10.3 Medications Medication Current Medications IV Flush (NS 3 ml) 3 ml PER PROTOCOL IV ; Start 04/02/19 at 06:00 Ondansetron HCl (Zofran Inj) 4 mg Q6H PRN IV NAUSEA/VOMITING; Start 04/02/19 at 06:00 Acetaminophen (Tylenol Tab) 650 mg Q6H PRN PO .PAIN 1-3 OR TEMP Last administered on 04/02/19at 06:55; Admin Dose 650 MG; Start 04/02/19 at 06:00 Acetaminophen/ Hydrocodone Bitart ([place] (5/325)) 1 tab Q6H PRN PO .MOD PAIN 4- 6; Start 04/02/19 at 06:00 Acetaminophen/ Hydrocodone Bitart ([place] (5/325)) 2 tab Q6H PRN PO .SEVERE PAIN 7-10 Last administered on 04/03/19 12:33; Admin Dose 2 TAB; Start 04/02/19 at 06:00 Enoxaparin Sodium (Lovenox) 40 mg DAILY SC Last administered on 04/05/19 09:54; Admin Dose 40 MG; Start 04/02/19 at 09:00 Aspirin (Halfprin) 81 mg DAILY PO Last administered on 04/05/19 09:57; Admin Dose 81 MG; Start 04/02/19 at 09:00 Vancomycin HCl (Vanco Iv Per Pharmacy) VANCOMYCIN PER PHARMACY PER PROTOCOL XX ; Start 04/02/19 at 06:00 Pantoprazole (Protonix Tab) 40 mg DAILY@06 PO Last administered on 04/05/19 06:02; Admin Dose 40 MG; Start 04/02/19 at 06:30 Vancomycin HCl 250 ml @ 125 mls/hr Q8H IVPB Last administered on 04/05/19 12:05; Admin Dose 125 MLS/HR; Start 04/04/19 at 04:00 Ceftriaxone Sodium 50 ml @ 100 mls/hr Q24H IVPB Last administered on 04/04/19 15:54; Admin Dose 100 MLS/HR; Start 04/04/19 at 15:30 ROSIE DARBY MD April 05, 2019 15:47
[2019-04-05] MEDS: CEFTRIAXONE 1 GM/50 ML (PMX) 50 ML IVPB SCH (16:17)
[2019-04-05 20:20] VITALS: BP 139/78; PULSE 73; RESP 18
[2019-04-06 02:13] VITALS: BP 122/67; PULSE 68; RESP 18
[2019-04-06] MEDS: VANCOMYCIN 1 GM 250 ML IVPB SCH ×2 (04:04→12:00)
[2019-04-06] MEDS: PANTOPRAZOLE (EC) 40 MG TAB PO SCH (05:58)
[2019-04-06] MEDS: ASPIRIN (EC) 81 MG TAB PO SCH (08:37)
[2019-04-06] MEDS: ENOXAPARIN 40 MG/0.4 ML SYG SC SCH (08:38)
[2019-04-06 09:06] VITALS: BP 146/79; PULSE 65; RESP 18
[2019-04-06] MEDS ORDERED: CEPH500C PO (12:19)
--- NOTE | 2019-04-06 12:23 | DS ---
Date/Time of Note Date/Time of Note DATE: 04/06/19 TIME: 12:20 Discharge Summary Admission/Discharge Info Admit Date/Time April 02, 2019 at 00:49 Discharge Date/Time Discharge Diagnosis 1. Right lower extremity cellulitis, improving, keflex, keep right leg elevated 2. sepsis, resolved 3. Obesity, weight loss Patient Condition: Stable Hospital Course This is a 53-year-old male with history of right lower extremity infection who presented to ER complaining of fever, right lower extremity erythema and tenderness. When he presented to the ER, he was febrile with a temperature of 101.4 and tachycardic. Labs shows white count of 18,000. Physical exam with redness, swelling, warmth and tenderness on right lower extremity between the knee and the ankle. Venous US negative for DVT, arterial US negative for PVD. Patient is on antibiotics for cellulitis, symptoms improved. Patient is afebrile, leukocytosis resolved. He will be on keflex for 10 days and he is instructed to keep right leg elevated. Home Meds Active Scripts Cephalexin* (Cephalexin*) 500 Mg Capsule, 500 MG PO Q6, #40 CAP Prov:ROSIE DARBY MD 04/06/19 Aspirin Ec (Aspir 81) 81 Mg Tablet., 81 MG PO DAILY, #30 TAB Prov:JOSE J PANIAGUA MD 06/07/16 Omeprazole* (Prilosec*) 40 Mg Capsule., 40 MG PO DAILY, #30 CAP Prov:JOSE J PANIAGUA MD 06/07/16 Follow-up Plan PCP in one week Primary Care Provider Romel Mcmanus Pending Labs Laboratory Tests Test 04/06/19 06:33 White Blood Count 7.3 10^3/ul (4.8-10.8) Red Blood Count 4.54 10^6/ul (4.70-6.10) Hemoglobin 14.1 g/dl (14.0-18.0) Hematocrit 43.3 % (42.0-52.0) Mean Corpuscular Volume 95.4 fl (82.0-101.0) Mean Corpuscular Hemoglobin 31.1 pg (29.0-33.0) Mean Corpuscular Hemoglobin Concent 32.6 g/dl (32.0-37.0) Red Cell Distribution Width 12.4 % (11.5-14.5) Platelet Count 227 10^3/UL (140-415) Mean Platelet Volume 9.1 fl (7.4-10.4) Immature Granulocytes % 1.500 % (0.001-0.429) Neutrophils % 52.7 % (39.0-77.0) Lymphocytes % 30.3 % (15.0-51.0) Monocytes % 10.9 % (0.0-11.0) Eosinophils % 3.6 % (0.0-7.0) Basophils % 1.0 % (0.0-2.0) Nucleated Red Blood Cells % 0.0 /100WBC (0.0-0.0) Immature Granulocytes # 0.110 10^3/ul (0.0-0.031) Neutrophils # 3.8 10^3/ul (1.6-7.5) Lymphocytes # 2.2 10^3/ul (0.8-2.9) Monocytes # 0.8 10^3/ul (0.3-0.9) Eosinophils # 0.3 10^3/ul (0.0-0.5) Basophils # 0.1 10^3/ul (0.0-0.1) Nucleated Red Blood Cells # 0.0 10^3/ul (0.0-0.0) ROSIE DARBY MD April 06, 2019 12:23
[2019-04-06] MEDS ORDERED: SULF1TAB31 PO (12:40)
--- NOTE | 2019-04-06 13:10 | CONS ---
Assessment/Plan Assessment/Plan Hospital Course (Demo Recall) Patient is alert feels good, no fevers, RLE looks much better Wound culture over the right lower extremity growing staph species Antimicrobials: Vancomycin and Rocephin Physical examination: Well-developed middle-aged [place] man who is alert in no distress. Head atraumatic normocephalic. Neck is supple chest rise symmetrical breath sounds clear. Heart: S1-S2. Abdomen soft bowel sounds present. Extremities: Right lower extremity edema and improved erythema Assessment: 1. Systemic inflammatory response syndrome with resolving leukocytosis 2. Right lower extremity cellulitis Doing better, ok dc on oral Bactrim for 7 more days Consultation Date/Type/Reason Admit Date/Time April 02, 2019 at 00:49 Initial Consult Date Type of Consult id Date/Time of Note DATE: 04/06/19 TIME: 13:09 Exam/Review of Systems Exam Vitals Vital Signs Date Temp Pulse Resp B/P (MAP) Pulse Ox O2 O2 Flow FiO2 Time Delivery Rate 04/06/19 98.2 65 18 146/79 96 09:06 (101) 04/04/19 Room Air 07:35 Intake and Output 04/05/19 04/05/19 04/06/19 1515:00 23:00 07:00 IntakeIntake Total 730 ml 780 ml 970 ml BalanceBalance 730 ml 780 ml 970 ml Results Result Diagram: 04/06/19 0633 04/03/19 0538 Results 24hrs Laboratory Tests Test 04/06/19 06:33 White Blood Count 7.3 Red Blood Count 4.54 L Hemoglobin 14.1 Hematocrit 43.3 Mean Corpuscular Volume 95.4 Mean Corpuscular Hemoglobin 31.1 Mean Corpuscular Hemoglobin Concent 32.6 Red Cell Distribution Width 12.4 Platelet Count 227 Mean Platelet Volume 9.1 Immature Granulocytes % 1.500 H Neutrophils % 52.7 Lymphocytes % 30.3 Monocytes % 10.9 Eosinophils % 3.6 Basophils % 1.0 Nucleated Red Blood Cells % 0.0 Immature Granulocytes # 0.110 H Neutrophils # 3.8 Lymphocytes # 2.2 Monocytes # 0.8 Eosinophils # 0.3 Basophils # 0.1 Nucleated Red Blood Cells # 0.0 Medications Medication Current Medications IV Flush (NS 3 ml) 3 ml PER PROTOCOL IV ; Start 04/02/19 at 06:00 Ondansetron HCl (Zofran Inj) 4 mg Q6H PRN IV NAUSEA/VOMITING; Start 04/02/19 at 06:00 Acetaminophen (Tylenol Tab) 650 mg Q6H PRN PO .PAIN 1-3 OR TEMP Last administered on 04/02/19at 06:55; Admin Dose 650 MG; Start 04/02/19 at 06:00 Acetaminophen/ Hydrocodone Bitart ([place] (5/325)) 1 tab Q6H PRN PO .MOD PAIN 4- 6; Start 04/02/19 at 06:00 Acetaminophen/ Hydrocodone Bitart ([place] (5/325)) 2 tab Q6H PRN PO .SEVERE PAIN 7-10 Last administered on 04/03/19 12:33; Admin Dose 2 TAB; Start 04/02/19 at 06:00 Enoxaparin Sodium (Lovenox) 40 mg DAILY SC Last administered on 04/06/19at 08:38; Admin Dose 40 MG; Start 04/02/19 at 09:00 Aspirin (Halfprin) 81 mg DAILY PO Last administered on 04/06/19at 08:37; Admin Dose 81 MG; Start 04/02/19 at 09:00 Vancomycin HCl (Vanco Iv Per Pharmacy) VANCOMYCIN PER PHARMACY PER PROTOCOL XX ; Start 04/02/19 at 06:00 Pantoprazole (Protonix Tab) 40 mg DAILY@06 PO Last administered on 04/06/19at 05:58; Admin Dose 40 MG; Start 04/02/19 at 06:30 Vancomycin HCl 250 ml @ 125 mls/hr Q8H IVPB Last administered on 04/06/19 04:04; Admin Dose 125 MLS/HR; Start 04/04/19 at 04:00 Ceftriaxone Sodium 50 ml @ 100 mls/hr Q24H IVPB Last administered on 04/05/19 16:17; Admin Dose 100 MLS/HR; Start 04/04/19 at 15:30 WHIT BALLESTEROS NP April 06, 2019 13:10
== END 2019-04-06 13:48 | disposition home or self-care (01) | DRG 872 ==
LOC: E/R 23:19 → PP2 04-02 00:49
PROVIDERS: ADMIT Internal Medicine; ATTEND Internal Medicine
DX: A41.9 Sepsis, unspecified organism (principal); L03.115 Cellulitis of right lower limb; Z68.41 Body mass index [BMI] 40.0-44.9, adult; Z72.0 Tobacco use; L73.9 Follicular disorder, unspecified; E66.9 Obesity, unspecified
CPT/HCPCS: 36415; 71045; 80048; 80053; 80202; 81003; 83605; 83735; 84100; 84484; 85025; 85610; 85730; 87070; 87086; 93005; 93926; 93971; 96365; 96375; J0692; J0696; J1650; J1940; J2543; J3370; J7030; J7050